=== PATIENT | female | born 1960 | race African-American/Black ===

== ENCOUNTER 2017-08-14 13:44 | Inpatient (IN) | payer BC ==
[~2017-08-14] VITALS: Ht 182.9 cm; Wt 67.1 kg
[~2017-08-14 13:44] MED LIST: HYDR12.53 PO; VALS80TA3 PO
[2017-08-14] MEDS ORDERED: IV DEXTROSE 5 %-0.45 % NACL 1,000 ML IV SCH (14:35)
--- NOTE | 2017-08-14 14:55 | EKG ---
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
[2017-08-14] MEDS: oxyCODONE IR 5 MG TABLET PO PRN ×3 (15:10→23:28)
[2017-08-14] MEDS ORDERED: IOHEXOL 300 MG/ML 75 ML VIAL IV ONE (16:30)
[2017-08-14 16:35] LABS: BASO # 0.1 x10^3/uL (0.0-0.2); BASO % 1 % (0-3); EOS % 1 % (0-3); HEMATOCRIT 34.9 % (36.0-47.0); HEMOGLOBIN 11.9 g/dL (12.0-15.5); LYMPH # 2.4 x10^3/uL (1.0-4.8); LYMPH % 30 % (24-48); MEAN CORPUSCULAR HEMOGLOBIN 32 pg (25-35); MEAN CORPUSCULAR HGB CONC 34 g/dL (31-37); MEAN CORPUSCULAR VOLUME 95 fL (79-100); MONO % 5 % (0-9); NEUT % 64 % (31-73); PLATELET COUNT 250 x10^3/uL (140-400); RED BLOOD COUNT 3.68 x10^6/uL (3.50-5.40); RED CELL DISTRIBUTION WIDTH 13.7 % (11.5-14.5); WHITE BLOOD COUNT 8.3 x10^3/uL (4.0-11.0)
[2017-08-14] MEDS ORDERED: CONTRAST GIVEN MC PRN (16:45)
[2017-08-14 16:56] LABS: ALBUMIN 4.3 g/dL (3.4-5.0); ALBUMIN/GLOBULIN RATIO 0.9 (1.0-1.7); CALCIUM 9.5 mg/dL (8.5-10.1); GFR 69.7; POTASSIUM 3.5 mmol/L (3.5-5.1); TOTAL BILIRUBIN 0.5 mg/dL (0.2-1.0); TOTAL PROTEIN 8.9 g/dL (6.4-8.2)
--- NOTE | 2017-08-14 17:13 | RAD ---
2 view CXR: Clinical indications: Hypertension. Hematuria for 2 days.. Comparison: December 30, 2013. Findings: No acute lung infiltrate or pleural effusion or pulmonary edema or lung mass or pneumothorax is seen. The heart size, pulmonary vasculature, mediastinum and both mariama are unremarkable. The osseous structures appear intact. Impression: No acute radiographic abnormality is seen.
[2017-08-14] MEDS: IV NORMAL SALINE 1000ML BAG 1,000 ML IV SCH (18:12)
[2017-08-14 19:05] LABS: BILIRUBIN,URINE NEGATIVE (NEG); GLUCOSE,URINE NEGATIVE (NEG); NITRITE,URINE NEGATIVE (NEG); PH,URINE 7.5; PROTEIN,URINE NEGATIVE (NEG-TRACE); UROBILINOGEN,URINE 0.2 mg/dL (0.2 mg/dL)
[2017-08-14 19:27] LABS: BACTERIA,URINE 0 /HPF (0-FEW); RBC,URINE TNTC /HPF (0-2); SQUAMOUS EPITHELIAL CELL,UR FEW /LPF; WBC,URINE 0 /HPF (0-4)
[2017-08-14 19:33] VITALS: BP 150/87
[2017-08-14 19:48] VITALS: BP 116/72
[2017-08-14 20:45] VITALS: BP 148/95
[2017-08-14 23:55] VITALS: BP 125/91
[2017-08-15] MEDS: IV NORMAL SALINE 1000ML BAG 1,000 ML IV SCH ×3 (03:26→20:35)
[2017-08-15] MEDS: oxyCODONE IR 5 MG TABLET PO PRN ×5 (03:28→20:29)
[2017-08-15 03:38] VITALS: BP 140/93
[2017-08-15 07:00] VITALS: BP 120/82
[2017-08-15 10:56] VITALS: BP 123/79
--- NOTE | 2017-08-15 11:37 | PDOC ---
Provider Note Provider Note Pt seen.H&P dictated. #[id number] BENITO ROQUE MD Aug 15, 2017 11:37
--- NOTE | 2017-08-15 11:48 | RAD ---
CT scan of the abdomen and pelvis without and with contrast 08/14/2017 Clinical history: Hematuria. Technique: Contiguous, 5 mm axial sections were obtained through the abdomen and pelvis without and with the use of intravenous contrast. 75 cc of Omnipaque 300 were administered intravenously during this examination. One or more of the following individualized dose reduction techniques were utilized for this study: 1. Automated exposure control. 2. Adjustment of the mA and/or kV according to patient size. 3. Use of iterative reconstruction technique. Findings: No previous imaging studies are available for comparison. Images through the lung bases demonstrate mild cardiomegaly. A 1 cm calcified granuloma is seen involving the right lower lobe. The unenhanced images of the abdomen and pelvis demonstrate no renal or ureteral calculus. The liver is mildly enlarged measuring 20 cm in length. Decreased attenuation of the liver parenchyma seen consistent with mild fatty infiltration. The spleen, pancreas, and left adrenal gland are within normal limits. A 1.8 cm rounded low-attenuation lesion is seen involving the right adrenal gland. This likely represents an adrenal adenoma. Small areas of scarring are seen involving both kidneys. No mass lesion is seen involving either kidney. Both kidneys enhance with contrast. Delayed postcontrast images of the abdomen and pelvis were not obtained. Moderate atherosclerotic calcification of the abdominal aorta is seen. The abdominal aorta tapers normally. Surgical clips are seen within the right upper quadrant of the abdomen consistent with a cholecystectomy. No free fluid or free air is seen within the abdomen. There is no evidence of bowel obstruction. Images through the pelvis was demonstrate the urinary bladder distended with urine. Calcifications are seen within the pelvis consistent with phleboliths. The patient appears to be be post hysterectomy. No adnexal mass is seen. No free fluid is noted. Degenerative changes are seen involving the lower thoracic and mid and lower lumbar spine and both hips. Impression: No acute abnormality is seen.
--- NOTE | 2017-08-15 12:37 | HP ---
ADMIT DATE: 08/14/2017 REASON FOR ADMISSION TO THE HOSPITAL: Nazanin hematuria. HISTORY OF PRESENT ILLNESS: The patient is a 57-year-old female patient known to me recently. She came to the office, complained of severe back as well as suprapubic pain with nazanin blood in the urine. The patient was admitted to the hospital for further workup. PAST MEDICAL HISTORY: History of hypertension, arthritis. PAST SURGICAL HISTORY: Hysterectomy and gallbladder surgery. PERSONAL HISTORY: Smokes for 1 pack for 35 years. Denies alcohol or street drugs. FAMILY HISTORY: Hypertension. ALLERGIES: CIPRO CAUSES SEVERE REACTION INCLUDING HIGH SHORTNESS OF BREATH. MEDICATIONS AT HOME: The patient is on valsartan 80 mg daily, hydrochlorothiazide 12.5 daily. REVIEW OF SYSTEMS: Complains of pain in the suprapubic, blood in the urine for the last 2 days and also noticed some discomfort in the back. No fever. Rest of the 14-system was reviewed and negative. PHYSICAL EXAMINATION: GENERAL: The patient was in pain yesterday, was crying. VITAL SIGNS: Temperature 98, pulse 69, respirations 18, blood pressure 116/72, 98% room air. HEENT: Head is atraumatic. Pupils equal. Oral cavity: No congestion. NECK: Supple. Thyroid not enlarged. JVD not elevated. CHEST: Symmetrical. CARDIOVASCULAR: S1, S2. LUNGS: Clear. ABDOMEN: Soft. Severe tenderness to palpation, slight flank pain and tenderness, had nazanin hematuria. EXTREMITIES: No calf tenderness, no edema. NEUROLOGIC: Cranial nerves intact. Power 5/5. EXTERNAL GENITALIA: Deferred. RECTAL: Deferred. LABORATORY DATA: Shows a white count of 8, hemoglobin 12, platelets 250. Electrolytes show sodium 139, potassium 3.5, chloride 101, bicarbonate 27, BUN 23, creatinine 1.0, glucose 90. LFTs were slightly high AST 75, ALT 104. Urine had lot of blood in the urine, moderate leukocyte esterase,. Chest x-ray: No acute abnormalities. FINAL IMPRESSION: 1. Nazanin hematuria. 2. Hypertension. 3. Suprapubic as well as flank pain, rule out kidney stone, rule out hemorrhagic cystitis as the underlying diagnosis. PLAN: At this time, admit to hospital, hydrate with IV fluids. Urine and blood culture. Start on Rocephin. CT scan of the kidneys and bladder and see how the patient's condition improves. BENITO ROQUE MD DR: SHRUTHI/nicki JOB#: [id number] / [id number]
[2017-08-15 15:00] VITALS: BP 118/80
[2017-08-15 19:00] VITALS: BP 124/78
[2017-08-15] MEDS ORDERED: OLME20TA19 PO (20:26)
[2017-08-15] MEDS ORDERED: AMLO10TA2 PO (20:26)
[2017-08-15] MEDS ORDERED: METO25TA4 PO (20:26)
[2017-08-15] MEDS ORDERED: LACTOBACILLUS RHAMNOSUS GG 1 CAPSULE. PO SCH (21:00)
[2017-08-15 23:00] VITALS: BP 137/86
[2017-08-16] MEDS: oxyCODONE IR 5 MG TABLET PO PRN ×3 (00:51→09:13)
[2017-08-16 03:00] VITALS: BP 115/73
[2017-08-16] MEDS: IV NORMAL SALINE 1000ML BAG 1,000 ML IV SCH (05:20)
[2017-08-16 05:27] LABS: BASO % 0 % (0-3); EOS % 1 % (0-3); HEMATOCRIT 34.4 % (36.0-47.0); HEMOGLOBIN 11.7 g/dL (12.0-15.5); LYMPH # 2.4 x10^3/uL (1.0-4.8); LYMPH % 41 % (24-48); MEAN CORPUSCULAR HEMOGLOBIN 32 pg (25-35); MEAN CORPUSCULAR HGB CONC 34 g/dL (31-37); MEAN CORPUSCULAR VOLUME 94 fL (79-100); MONO % 6 % (0-9); NEUT % 52 % (31-73); PLATELET COUNT 220 x10^3/uL (140-400); RED BLOOD COUNT 3.65 x10^6/uL (3.50-5.40); RED CELL DISTRIBUTION WIDTH 13.6 % (11.5-14.5)
[2017-08-16 05:43] LABS: CALCIUM 8.9 mg/dL (8.5-10.1); CREATININE 1.1 mg/dL (0.6-1.0); GFR 62.4; POTASSIUM 3.9 mmol/L (3.5-5.1)
[2017-08-16 07:00] VITALS: BP 122/80
--- NOTE | 2017-08-16 11:32 | PDOC ---
PROGRESS NOTES Subjective Subjective bladder discomfort, clear urine Objective Objective Vital Signs Date Time Temp Pulse Resp B/P (MAP) Pulse Ox O2 Delivery O2 Flow Rate FiO2 08/16/17 09:13 20 97 Room Air 08/16/17 07:00 98.2 72 122/80 (94) 98.2 Physical Exam Abdomen: Normal bowel sounds, Soft Heart: Regular rate, Normal S1, Normal S2 Extremities: No clubbing General: Alert HEENT: Atraumatic Lungs: Clear to auscultation MUSCULOSKELETAL: No deformity Neck: Supple Neuro: Normal speech Psych/Mental Status: Mental status NL Skin: No breakdown Assessment Assessment FINAL IMPRESSION: 1. Jamal hematuria.,hemorrhagic cystitis due to UTI 2. Hypertension. 3. Suprapubic as well as flank pain, rule out kidney stone, rule out hemorrhagic cystitis as the underlying diagnosis. PLAN: urine c/s 50,[address] scan -ve for kidney stones or tumors. d/c home on Bactrim ds +Pyridium. tramadol for pain control . labs ok. Problems: Comment Review of Relevant I have reviewed the following items helder (where applicable) has been applied. Labs Laboratory Tests Test 08/16/17 05:13 White Blood Count 6.0 x10^3/uL (4.0-11.0) Red Blood Count 3.65 x10^6/uL (3.50-5.40) Hemoglobin 11.7 g/dL (12.0-15.5) Hematocrit 34.4 % (36.0-47.0) Mean Corpuscular Volume 94 fL (79-100) Mean Corpuscular Hemoglobin 32 pg (25-35) Mean Corpuscular Hemoglobin Concent 34 g/dL (31-37) Red Cell Distribution Width 13.6 % (11.5-14.5) Platelet Count 220 x10^3/uL (140-400) Neutrophils (%) (Auto) 52 % (31-73) Lymphocytes (%) (Auto) 41 % (24-48) Monocytes (%) (Auto) 6 % (0-9) Eosinophils (%) (Auto) 1 % (0-3) Basophils (%) (Auto) 0 % (0-3) Neutrophils # (Auto) 3.1 x10^3uL (1.8-7.7) Lymphocytes # (Auto) 2.4 x10^3/uL (1.0-4.8) Monocytes # (Auto) 0.3 x10^3/uL (0.0-1.1) Eosinophils # (Auto) 0.1 x10^3/uL (0.0-0.7) Basophils # (Auto) 0.0 x10^3/uL (0.0-0.2) Sodium Level 141 mmol/L (136-145) Potassium Level 3.9 mmol/L (3.5-5.1) Chloride Level 106 mmol/L (98-107) Carbon Dioxide Level 28 mmol/L (21-32) Anion Gap 7 (6-14) Blood Urea Nitrogen 14 mg/dL (7-20) Creatinine 1.1 mg/dL (0.6-1.0) Estimated GFR (Cockcroft-Gault) 62.4 Glucose Level 92 mg/dL (70-99) Calcium Level 8.9 mg/dL (8.5-10.1) Microbiology 08/14/17 Blood Culture - Preliminary, Resulted NO GROWTH AFTER 1 DAY 08/14/17 Urine Culture - Final, Complete 08/14/17 Urine Culture Result 1 (ROBERT) - Final, Complete 08/14/17 Antimicrobic Susceptibility - Final, Complete Medications Current Medications Ceftriaxone Sodium 1 gm/ Sodium Chloride 50 ml @ 100 mls/hr Q24H IV ; Start at 15:00 Lactobacillus Rhamnosus (Culturelle) 1 cap BID PO Last administered on t 20:29; Start 08/15/17 at 21:00; Stop 08/16/17 at 08:13; Status DC Lactobacillus Rhamnosus (Culturelle) 1 cap BID PO ; Start 08/17/17 at 21:00 Vitals/I & O Vital Sign - Last 24 Hours 08/15/17 08/15/17 08/15/17 08/15/17 12:07 15:00 16:13 19:00 Temp 98.2 98.2 98.2 98.2 Pulse 66 70 Resp 20 18 20 18 B/P (MAP) 118/80 (93) 124/78 (93) Pulse Ox 94 97 98 O2 Delivery Room Air Room Air Room Air Room Air 08/15/17 08/15/17 08/15/17 08/16/17 20:00 20:29 23:00 00:51 Temp 98.1 98.1 Pulse 79 Resp 18 18 18 B/P (MAP) 137/86 (103) Pulse Ox 97 98 98 O2 Delivery Room Air Room Air Room Air Room Air 08/16/17 08/16/17 08/16/17 08/16/17 03:00 05:25 06:25 07:00 Temp 97.9 98.2 97.9 98.2 Pulse 74 72 Resp 18 18 18 20 B/P (MAP) 115/73 (87) 122/80 (94) Pulse Ox 97 97 97 97 O2 Delivery Room Air Room Air Room Air Room Air 08/16/17 08/16/17 08:00 09:13 Resp 20 Pulse Ox 97 O2 Delivery Room Air Room Air BENITO ROQUE MD Aug 16, 2017 11:32
[2017-08-16] MEDS ORDERED: SULF1TAB24 PO (11:35)
[2017-08-16] MEDS ORDERED: PHEN100T82 PO (11:35)
[2017-08-16] MEDS ORDERED: TRAM50TA PO (11:35)
[2017-08-17] MEDS ORDERED: LACTOBACILLUS RHAMNOSUS GG 1 CAPSULE. PO SCH (21:00)
== END 2017-08-16 12:30 | disposition home or self-care (01) | DRG 690 ==
LOC: 5 NORTH 14:02
PROVIDERS: ADMIT Internal Medicine; ATTEND Internal Medicine
DX: N30.91 Cystitis, unspecified with hematuria (principal); F17.210 Nicotine dependence, cigarettes, uncomplicated; I10 Essential (primary) hypertension; M19.90 Unspecified osteoarthritis, unspecified site; R31.0 Gross hematuria; Z82.49 Family history of ischemic heart disease and other diseases of the circulatory system; Z82.61 Family history of arthritis; Z90.710 Acquired absence of both cervix and uterus; Z88.1 Allergy status to other antibiotic agents
CPT/HCPCS: 36415; 71020; 74178; 80048; 80053; 81001; 85025; 87040; 87086; 93005; J0696; J7030; Q9967